=== PATIENT | female | born 1985 | race Hispanic/Latino ===

== ENCOUNTER 2017-12-15 18:17 | Inpatient (IN) | payer BC ==
[2017-12-15] MEDS ORDERED: Methylergonovine 0.2 MG/1 ML Amp IM PRN (18:52)
[2017-12-15] MEDS ORDERED: Sodium Chloride 0.9% 10 ML Syringe FLUSH PRN (18:52)
[2017-12-15] MEDS ORDERED: Lidocaine 1% 50 ML MDV INJECT PRN (18:52)
[2017-12-15] MEDS ORDERED: Misoprostol 200 MCG Tab PO PRN (18:52)
[2017-12-15] MEDS ORDERED: Sodium Chloride 0.9% 2.5 ML Syringe FLUSH PRN (18:52)
[2017-12-15] MEDS ORDERED: Water For Irrigation,Sterile 1,000 ML Container IRR PRN (18:52)
[2017-12-15] MEDS ORDERED: Tranexamic Acid 1,000 MG in Sodium Chloride 0.9% 100 ML IV PRN (18:52)
[2017-12-15] MEDS ORDERED: Nalbuphine 10 MG/1 ML Vial IVPUSH PRN (18:52)
[2017-12-15] MEDS ORDERED: Carboprost Tromethamine 250 MCG/1 ML Amp IM PRN (18:52)
[2017-12-15] MEDS ORDERED: Oxytocin/0.9 % Sodium Chloride 30 UNIT/500 ML BAG IV SCH ×2 (19:00→20:30)
[2017-12-15 19:45] LABS: CHLORIDE,CL 103 mmol/L (98-107); SODIUM,NA 136 mmol/L (136-145)
[2017-12-15] MEDS ORDERED: Misoprostol 25 MCG (1/4 of 100 MCG) Tab VAG PRN (20:23)
[2017-12-15] MEDS ORDERED: Terbutaline 1 MG/ML SDV SUBCUT PRN (20:23)
[2017-12-15] MEDS: Misoprostol 25 MCG (1/4 of 100 MCG) Tab VAG SCH (20:47)
[2017-12-16] MEDS: Misoprostol 25 MCG (1/4 of 100 MCG) Tab VAG SCH ×2 (01:11→07:00)
[2017-12-16] MEDS: Butorphanol 1 MG/ML SDV IVPUSH PRN ×2 (07:07→09:28)
[2017-12-16] MEDS: Lactated Ringers 1,000 ML IV SCH ×2 (09:37→11:02)
[2017-12-16] MEDS ORDERED: Ropivacaine 0.2% 2 MG/ML 20 ML SDV ONE (10:55)
[2017-12-16] MEDS ORDERED: Ropivacaine HCl/PF 100 ML ONE (10:55)
[2017-12-16] MEDS ORDERED: fentaNYL 100 MCG/2 ML SDV ONE (10:55)
--- NOTE | 2017-12-16 11:24 | PCM.PREANE ---
Preanesthetic Assessment - Anesthesia/Transfusion/Family Hx Anesthesia History: Prior Anesthesia Without Reaction Family History of Anesthesia Reaction: No Transfusion History: No Prior Transfusion(s) Intubation History: Unknown - Review of Systems General: No Symptoms Pulmonary: No Symptoms Cardiovascular: No Symptoms Gastrointestinal: No Symptoms Neurological: No Symptoms Other: Reports: None - Physical Assessment NPO Status Date: 12/16/17 NPO Status Time: 08:00 (SIPS/CHIPS) Blood Pressure: 142/93 Height: 5 ft 2 in Weight: 181 lb 6 oz ASA Class: 2 Mental Status: Alert & Oriented x3 Airway Class: Mallampati = 2 Dentition: Reports: Normal Dentition Thyro-Mental Finger Breadths: 3 Mouth Opening Finger Breadths: 3 ROM/Head Extension: Full Lungs: Clear to Auscultation, Normal Respiratory Effort Cardiovascular: Regular Rate, Regular Rhythm - Lab Values: Laboratory Last Values WBC 5.82 K/uL (4.0-11.0) 12/15/17 19:10 RBC 4.17 M/uL (4.30-5.90) L 12/15/17 19:10 Hgb 12.7 g/dL (12.0-16.0) 12/15/17 19:10 Hct 37.8 % (36.0-46.0) 12/15/17 19:10 MCV 90.6 fL (80.0-98.0) 12/15/17 19:10 MCH 30.5 pg (27.0-32.0) 12/15/17 19:10 MCHC 33.6 g/dL (31.0-37.0) 12/15/17 19:10 RDW Std Deviation 45.6 fl (28.0-62.0) 12/15/17 19:10 RDW Coeff of Tosin 14 % (11.0-15.0) 12/15/17 19:10 Plt Count 137 K/uL (150-400) L 12/15/17 19:10 MPV 11.20 fL (7.40-12.00) 12/15/17 19:10 Nucleated RBC % 0.0 /100WBC 12/15/17 19:10 Nucleated RBCs # 0 K/uL 12/15/17 19:10 Sodium 136 mmol/L (136-145) 12/15/17 19:10 Potassium 3.8 mmol/L (3.5-5.1) 12/15/17 19:10 Chloride 103 mmol/L (98-107) 12/15/17 19:10 Carbon Dioxide 21.8 mmol/L (21.0-32.0) 12/15/17 19:10 BUN 13 mg/dL (7.0-18.0) 12/15/17 19:10 Creatinine 0.6 mg/dL (0.6-1.0) 12/15/17 19:10 Est Cr Clr Drug Dosing 104.49 mL/min 12/15/17 19:10 Estimated GFR (MDRD) > 60.0 ml/min 12/15/17 19:10 Glucose 104 mg/dL (74-106) 12/15/17 19:10 Calcium 8.7 mg/dL (8.5-10.1) 12/15/17 19:10 Total Bilirubin 0.2 mg/dL (0.2-1.0) 12/15/17 19:10 AST 25 IU/L (15-37) 12/15/17 19:10 ALT 16 IU/L (14-63) 12/15/17 19:10 Alkaline Phosphatase 98 U/L (46-116) 12/15/17 19:10 Total Protein 6.5 g/dL (6.4-8.2) 12/15/17 19:10 Albumin 2.7 g/dL (3.4-5.0) L 12/15/17 19:10 Globulin 3.8 g/dL (2.0-3.5) H 12/15/17 19:10 Albumin/Globulin Ratio 0.7 (1.3-2.8) L 12/15/17 19:10 Urine Color YELLOW 12/15/17 22:45 Urine Appearance CLEAR 12/15/17 22:45 Urine pH 6.5 (5.0-8.0) 12/15/17 22:45 Ur Specific Wallace 1.015 (1.001-1.035) 12/15/17 22:45 Urine Protein NEGATIVE mg/dL (NEGATIVE) 12/15/17 22:45 Urine Glucose (UA) NEGATIVE mg/dL (NEGATIVE) 12/15/17 22:45 Urine Ketones NEGATIVE mg/dL (NEGATIVE) 12/15/17 22:45 Urine Occult Blood NEGATIVE (NEGATIVE) 12/15/17 22:45 Urine Nitrite NEGATIVE (NEGATIVE) 12/15/17 22:45 Urine Bilirubin NEGATIVE (NEGATIVE) 12/15/17 22:45 Urine Urobilinogen 0.2 EU/dL (<2.0) 12/15/17 22:45 Ur Leukocyte Esterase NEGATIVE (NEGATIVE) 12/15/17 22:45 Urine RBC 0-1 (0-2/HPF) 12/15/17 22:45 Urine WBC 0-2 (0-5/HPF) 12/15/17 22:45 Ur Epithelial Cells OCCASIONAL (NONE-FEW) 12/15/17 22:45 Urine Bacteria RARE (NEGATIVE) 12/15/17 22:45 Blood Type B POSITIVE 12/15/17 19:10 Antibody Screen NEGATIVE 12/15/17 19:10 - Allergies Allergies/Adverse Reactions: Allergies Allergy/AdvReac Type Severity Reaction Status Date / Time No Known Allergies Allergy Verified 07/13/15 06:09 - Blood Blood Available: No Product(s) Available: None - Anesthesia Plan Free Text/Narrative:: Labor Epidural Pre-Op Medication Ordered: None - Acknowledgements Anesthesia Type Planned: Epidural Pt an Appropriate Candidate for the Planned Anesthesia: Yes Alternatives and Risks of Anesthesia Discussed w Pt/Guardian: Yes Pt/Guardian Understands and Agrees with Anesthesia Plan: Yes PreAnesthesia Questionnaire - Past Health History Medical/Surgical History: Denies Medical/Surgical History HEENT History: Reports: None Cardiovascular History: Reports: None Respiratory History: Reports: None Gastrointestinal History: Reports: None Genitourinary History: Reports: None 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: Musculoskeletal History: Reports: None Neurological History: Reports: None Psychiatric History: Reports: Anxiety Endocrine/Metabolic History: Reports: None Hematologic History: Reports: None, Idiopathic Thrombocytopenia Oncologic (Cancer) History: Reports: None Dermatologic History: Reports: None - Infectious Disease History Infectious Disease History: Reports: Chicken Pox - Past Surgical History Head Surgeries/Procedures: Reports: None GI Surgical History: Reports: None Female Surgical History: Reports: None Neurological Surgical History: Reports: None Musculoskeletal Surgical History: Reports: None Oncologic Surgical History: Reports: None Dermatological Surgical History: Reports: None - SUBSTANCE USE Smoking Status *Q: Never Smoker Second Hand Smoke Exposure: No Recreational Drug Use History: No - HOME MEDS Home Medications: Home Meds Citalopram [Citalopram HBr] 20 mg PO DAILY 12/15/17 [History] Vit #108/Iron/FA [ One Tablet] 1 each PO DAILY 12/15/17 [ History] - CURRENT (IN HOUSE) MEDS Current Meds: Current Medications Butorphanol Tartrate (Stadol) 1 mg IVPUSH Q1H PRN PRN Reason: Pain Last Admin: 12/16/17 09:28 Dose: 1 mg Carboprost Tromethamine (Hemabate Ds) 250 mcg IM ASDIRECTED PRN PRN Reason: Post Hemorrhage Lactated Ringer's (Ringers, Lactated) 1,000 mls @ 150 mls/hr IV ASDIRECTED GIANLUCA Last Admin: 12/16/17 11:02 Dose: 200 mls/hr Oxytocin/Sodium Chloride (Oxytocin 30 Unit/500 Ml-Ns) 30 unit in 500 mls @ 250 mls/hr IV TITRATE GIANLUCA Tranexamic Acid 1,000 mg/ (Sodium Chloride) 110 mls @ 660 mls/hr IV ONETIME PRN PRN Reason: Bleeding Oxytocin/Sodium Chloride (Oxytocin 30 Unit/500 Ml-Ns) 30 unit in 500 mls @ 2 mls/hr IV TITRATE GIANLUCA; Protocol Lidocaine HCl (Xylocaine 1%) 50 ml INJECT .ONCE PRN PRN Reason: Laceration repair Methylergonovine Maleate (Methergine) 0.2 mg IM ASDIRECTED PRN PRN Reason: Post Hemorrhage Misoprostol (Cytotec) 200 mcg PO .ONCE PRN PRN Reason: Post Hemorrhage Misoprostol (Cytotec) 25 mcg VAG .ONCE GIANLUCA Last Admin: 12/16/17 07:00 Dose: 25 mcg Misoprostol (Cytotec) 25 mcg VAG Q4H PRN PRN Reason: Cervical Ripening Nalbuphine HCl (Nubain) 10 mg IVPUSH Q1H PRN PRN Reason: Pain (severe 7-10) Sodium Chloride (Saline Flush) 10 ml FLUSH ASDIRECTED PRN PRN Reason: Keep Vein Open Sodium Chloride (Saline Flush) 2.5 ml FLUSH ASDIRECTED PRN PRN Reason: Keep Vein Open Last Admin: 12/16/17 09:29 Dose: 2.5 ml Sterile Water (Sterile Water For Irrigation) 1,000 ml IRR ASDIRECTED PRN PRN Reason: delivery Terbutaline Sulfate (Brethine) 0.25 mg SUBCUT ASDIRECTED PRN PRN Reason: Tacysystole Discontinued Medications Fentanyl (Sublimaze) Confirm Administered Dose 100 mcg .ROUTE .STK-MED ONE Stop: 12/16/17 10:56 Ropivacaine (Naropin 0.2%) Confirm Administered Dose 100 mls @ as directed .ROUTE .STK-MED ONE Stop: 12/16/17 10:56 Ropivacaine (Naropin 0.2%) Confirm Administered Dose 20 ml .ROUTE .STK-MED ONE Stop: 12/16/17 10:56
[2017-12-16] MEDS ORDERED: Acetaminophen 500 MG Tab PO PRN (16:20)
[2017-12-16] MEDS ORDERED: Lanolin 100% Cream 7 GM Tube TOP PRN (16:20)
[2017-12-16] MEDS ORDERED: Bisacodyl 10 MG Supp RECTAL PRN (16:20)
[2017-12-16] MEDS ORDERED: Aluminum Hydroxide/Magnesium Hydroxide/Simethicone Susp 30 ML Cup PO PRN (16:20)
[2017-12-16] MEDS ORDERED: Ibuprofen 400 MG Tab PO PRN (16:20)
[2017-12-16] MEDS ORDERED: Benzocaine/Menthol 20%-0.5% Spray 78 GM Cannister TOP PRN (16:20)
[2017-12-16] MEDS ORDERED: Hydrocortisone 2.5% Crm 30 GM Tube TOP PRN (16:20)
[2017-12-16] MEDS ORDERED: Lidocaine 5% Oint 35.44 GM Tube TOP PRN (16:22)
--- NOTE | 2017-12-16 16:30 | PCM.OPNOTE ---
- General Post-Op/Procedure Note Date of Surgery/Procedure: 12/16/17 Operative Procedure(s): /IP Findings: Viable male APGARs 9, 9 weight 3380 gm. Spontaneous delivery intact placenta with 3 V cord Pre Op Diagnosis: 38 week IUP. Gestational proteinuria. Gestational thrombocytopenia Post-Op Diagnosis: Same Anesthesia Technique: Epidural Primary Surgeon: Marquita Elliott EBL in mLs: 300 Complications: none known Condition: Good Free Text/Narrative:: Dictation [id number]
[2017-12-16] MEDS: Witch Hazel Medicated Pads 40/Jar TOP PRN (20:02)
[2017-12-16] MEDS: Docusate Sodium 100 MG Cap PO PRN (20:04)
[2017-12-16] MEDS: oxyCODONE 5 MG Tab PO PRN (20:42)
[2017-12-16] MEDS: Acetaminophen 500 MG Tab PO PRN (20:43)
--- NOTE | 2017-12-16 23:18 | OR ---
SURGEON: Marquita Elliott M.D. DATE OF PROCEDURE: 12/16/2017 PREOPERATIVE DIAGNOSES: 1. 38-week intrauterine . 2. Gestational proteinuria. 3. Gestational thrombocytopenia. POSTOPERATIVE DIAGNOSES: 1. 38-week intrauterine . 2. Gestational proteinuria. 3. Gestational thrombocytopenia. PROCEDURE: Spontaneous vaginal delivery. Intact perineum. ESTIMATED BLOOD LOSS: 300 mL. ANESTHESIA: Epidural. FINDINGS: Viable male, score 9 at 1 minute and 9 at 5 minute. Weight of 3380 g. Spontaneous delivery, intact placenta, three-vessel cord, clear amniotic fluid. DISPOSITION: Infant to nursery, mom in LDRP, stable. PROCEDURE DETAILS: Lucie is a 32-year-old G2, P1, at 37 and 6/7 week gestational age when she presented to Labor and Delivery for induction of labor due to abnormal 24-hour urine and mild thrombocytopenia. LFTs are normal. Blood pressures range in the 120 to 130/70 to 80 range. She denies any headaches, visual changes, midepigastric pain, given term gestation and with these acute findings, felt best to proceed with delivery. Risks of procedure were discussed and proper consent obtained. The patient initially was found to be 1 cm, 40% effaced, -3 station; therefore, was initiated on Cytotec ripening, received three doses and respond nicely. This found to be 3 to 4 cm, 70% effaced, -2 station. Therefore, she was initiated on Pitocin, became increasingly uncomfortable, underwent regional anesthesia from epidural. Shortly after noon, was found to be 4 to 5 cm, had spontaneous rupture of membranes. Clear fluid was noted to be present. An IUPC was placed to help monitor contractions more closely. Shortly after spontaneous rupture of membranes, the patient began having significantly increased intensity in contractions and quickly progressed to 7 cm. There were some initial recurrent deceleration with this rapid change in her cervix; however, Pitocin was discontinued. The patient was repositioned, oxygen was applied and with the contractions spacing out slightly, the heart tones recovered to 120s with variability. The patient continued to progress to complete 100%, effaced at -2 station. Pushed readily to a +3 station. I was called for delivery. Upon my arrival, the patient was placed in modified dorsal lithotomy position, was prepped and draped in the usual aseptic manner. Continue to pushing efforts, pushed readily to a +4 station. Shortly thereafter, delivered 's head followed by anterior shoulder push, remaining body without difficulty. The infant's oropharynx and nares bulb suctioned. Cord was clamped x2 and cut. was handed off to his mother, attending nursing staff side. Cord arterial, cord venous, cord blood sampling obtained. Light pressure was applied while the placenta was delivered spontaneously intact. Vigorous fundal uterine massage was applied while 30 units of Pitocin was delivered in 500 mL of fluid. Upon inspection of cervix, vaginal side, and perineum, these found to be intact. Uterus remained firm. Hemostasis evident. Sponge count was correct. The patient remained in LDRP. Infant to nursery. MARI / MELO /[id number]
[2017-12-17] MEDS: Ibuprofen 800 MG Tab PO PRN ×2 (01:55→12:33)
[2017-12-17] MEDS: oxyCODONE 5 MG Tab PO PRN ×4 (05:28→23:03)
[2017-12-17] MEDS: Acetaminophen 500 MG Tab PO PRN ×3 (05:29→23:05)
--- NOTE | 2017-12-17 09:40 | PCM.PNPP ---
- General Info Date of Service: 12/17/17 Functional Status: Reports: Pain Controlled, Tolerating Diet, Ambulating, Urinating - Review of Systems General: Denies: Fever, Weakness Pulmonary: Denies: Shortness of Breath Cardiovascular: Denies: Chest Pain, Palpitations, Lightheadedness Gastrointestinal: Reports: Flatus. Denies: Nausea, Vomiting Genitourinary: Denies: Flank Pain Skin: Reports: No Symptoms Neurological: Denies: Dizziness, Headache Psychiatric: Reports: No Symptoms - General Info Date of Service: 12/17/17 - Patient Data Vital Signs - Most Recent: Last Vital Signs Temp 36.4 C 12/17/17 08:14 Pulse 77 12/17/17 06:43 Resp 18 12/17/17 08:14 BP 137/78 12/17/17 08:14 Pulse Ox 98 12/17/17 08:14 Weight - Most Recent: 82.27 kg Lab Results - Last 24 Hours: Laboratory Results - last 24 hr 12/16/17 12/17/17 Range/Units 15:55 05:33 WBC 9.10 (4.0-11.0) K/uL RBC 3.89 L (4.30-5.90) M/uL Hgb 11.8 L (12.0-16.0) g/dL Hct 35.6 L (36.0-46.0) % MCV 91.5 (80.0-98.0) fL MCH 30.3 (27.0-32.0) pg MCHC 33.1 (31.0-37.0) g/dL RDW Std Deviation 45.8 (28.0-62.0) fl RDW Coeff of Tosin 14 (11.0-15.0) % Plt Count 127 L (150-400) K/uL MPV 10.90 (7.40-12.00) fL Nucleated RBC % 0.0 /100WBC Nucleated RBCs # 0 K/uL Cord ABG pH 7.182 (7.18-7.38) Cord ABG Base Excess -5 (-10--2) Cord VBG pH 7.262 (7.25-7.45) Cord VBG Base Excess -5 (-10--2) Med Orders - Current: Current Medications Acetaminophen (Tylenol Extra Strength) 500 mg PO Q4H PRN PRN Reason: Pain Last Admin: 12/17/17 05:29 Dose: 500 mg Acetaminophen (Tylenol Extra Strength) 1,000 mg PO Q4H PRN PRN Reason: Pain Al Hydroxide/Mg Hydroxide (Mag-Al Plus) 30 ml PO Q8H PRN PRN Reason: Heartburn Benzocaine/Menthol (Dermoplast Pain Relief 20%-0.5% [place]) 0 gm TOP ASDIRECTED PRN PRN Reason: Perineal Comfort Measure Last Admin: 12/16/17 20:02 Dose: 78 gm Bisacodyl (Dulcolax) 10 mg RECTAL .ONCE PRN PRN Reason: Constipation Carboprost Tromethamine (Hemabate Ds) 250 mcg IM ASDIRECTED PRN PRN Reason: Post Hemorrhage Docusate Sodium (Colace) 100 mg PO BID PRN PRN Reason: Constipation Last Admin: 12/16/17 20:04 Dose: 100 mg Emollient Ointment (Lansinoh Hpa) 0 gm TOP ASDIRECTED PRN PRN Reason: Sore Nipples Last Admin: 12/16/17 20:02 Dose: 7 gm Hydrocortisone (Proctozone-Hc 2.5% Crm) 0 gm TOP 5XDAY PRN PRN Reason: Itching Last Admin: 12/16/17 20:03 Dose: 30 gm Lactated Ringer's (Ringers, Lactated) 1,000 mls @ 150 mls/hr IV ASDIRECTED GIANLUCA Last Admin: 12/16/17 11:02 Dose: 200 mls/hr Oxytocin/Sodium Chloride (Oxytocin 30 Unit/500 Ml-Ns) 30 unit in 500 mls @ 250 mls/hr IV TITRATE GIANLUCA Tranexamic Acid 1,000 mg/ (Sodium Chloride) 110 mls @ 660 mls/hr IV ONETIME PRN PRN Reason: Bleeding Oxytocin/Sodium Chloride (Oxytocin 30 Unit/500 Ml-Ns) 30 unit in 500 mls @ 2 mls/hr IV TITRATE GIANLUCA; Protocol Last Titration: 12/16/17 14:53 Dose: 4 munits/min, 4 mls/hr Ibuprofen (Motrin) 400 mg PO Q4H PRN PRN Reason: Pain Ibuprofen (Motrin) 800 mg PO Q6H PRN PRN Reason: Pain Last Admin: 12/17/17 01:55 Dose: 800 mg Lidocaine HCl (Lidocaine 5%) 0 gm TOP QID PRN PRN Reason: hemorrhoid pain Methylergonovine Maleate (Methergine) 0.2 mg IM ASDIRECTED PRN PRN Reason: Post Hemorrhage Misoprostol (Cytotec) 200 mcg PO .ONCE PRN PRN Reason: Post Hemorrhage Oxycodone HCl (Oxycodone) 5 mg PO Q2H PRN PRN Reason: Pain Last Admin: 12/17/17 05:28 Dose: 5 mg Sodium Chloride (Saline Flush) 10 ml FLUSH ASDIRECTED PRN PRN Reason: Keep Vein Open Sodium Chloride (Saline Flush) 2.5 ml FLUSH ASDIRECTED PRN PRN Reason: Keep Vein Open Last Admin: 12/16/17 09:29 Dose: 2.5 ml Witch Fior (Tucks) 1 pad TOP ASDIRECTED PRN PRN Reason: comfort care Last Admin: 12/16/17 20:02 Dose: 1 pad Discontinued Medications Butorphanol Tartrate (Stadol) 1 mg IVPUSH Q1H PRN PRN Reason: Pain Last Admin: 12/16/17 09:28 Dose: 1 mg Fentanyl (Sublimaze) Confirm Administered Dose 100 mcg .ROUTE .STTurbulenz-MED ONE Stop: 12/16/17 10:56 Last Admin: 12/17/17 08:18 Dose: Not Given Ropivacaine (Naropin 0.2%) Confirm Administered Dose 100 mls @ as directed .ROUTE .Genophen-MED ONE Stop: 12/16/17 10:56 Last Admin: 12/17/17 08:18 Dose: Not Given Lidocaine HCl (Xylocaine 1%) 50 ml INJECT .ONCE PRN PRN Reason: Laceration repair Misoprostol (Cytotec) 25 mcg VAG .ONCE GIANLUCA Last Admin: 12/16/17 07:00 Dose: 25 mcg Misoprostol (Cytotec) 25 mcg VAG Q4H PRN PRN Reason: Cervical Ripening Nalbuphine HCl (Nubain) 10 mg IVPUSH Q1H PRN PRN Reason: Pain (severe 7-10) Ropivacaine (Naropin 0.2%) Confirm Administered Dose 20 ml .ROUTE .STK-MED ONE Stop: 12/16/17 10:56 Last Admin: 12/17/17 08:18 Dose: Not Given Sterile Water (Sterile Water For Irrigation) 1,000 ml IRR ASDIRECTED PRN PRN Reason: delivery Terbutaline Sulfate (Brethine) 0.25 mg SUBCUT ASDIRECTED PRN PRN Reason: Tacysystole - Interaction Support Person: , Other (see below) - Recovery Exam Fundal Tone: Firm Fundal Level: At Umbilicus Fundal Placement: Midline Lochia Amount: Scant Lochia Color: Rubra/Red Perineum Description: Hemorrhoids Episiotomy/Laceration: None Bladder Status: Voiding Urinary Elimination: Voided - Exam General: Alert, Oriented Lungs: Normal Respiratory Effort Cardiovascular: Regular Rate, Regular Rhythm GI/Abdominal Exam: Normal Bowel Sounds, Soft, Non-Tender Extremities: Pedal Edema (jose martin). No: Tori's Sign Skin: Warm, Dry, Intact Neurological: No New Focal Deficit Psy/Mental Status: Alert, Normal Affect, Normal Mood - Problem List & Annotations (1) Vaginal delivery SNOMED Code(s): 742019734 Code(s): O80 - ENCOUNTER FOR FULL-TERM UNCOMPLICATED DELIVERY Status: Acute Current Visit: Yes (2) Gestational proteinuria SNOMED Code(s): 35141898 Code(s): O12.10 - GESTATIONAL PROTEINURIA, UNSPECIFIED TRIMESTER Status: Acute Current Visit: Yes - Problem List Review Problem List Initiated/Reviewed/Updated: Yes - My Orders Last 24 Hours: My Active Orders 12/16/17 16:20 Patient Status [ADT] Routine May Shower [RC] ASDIRECTED Up ad Nathaly [RC] ASDIRECTED Vital Signs [RC] PER UNIT ROUTINE Acetaminophen [Tylenol Extra Strength] 1,000 mg PO Q4H PRN Acetaminophen [Tylenol Extra Strength] 500 mg PO Q4H PRN Alum Hydrox/Mag Hydrox/Simeth [Mag-Al Plus] 30 ml PO Q8H PRN Benzocaine/Menthol [Dermoplast Pain Relief 20%-0.5% [place]] 0 gm TOP ASDIRECTED PRN Bisacodyl [Dulcolax] 10 mg RECTAL .ONCE PRN Docusate Sodium [Colace] 100 mg PO BID PRN Hydrocortisone [Proctozone-HC 2.5% Crm] 0 gm TOP 5XDAY PRN Ibuprofen [Motrin] 400 mg PO Q4H PRN Ibuprofen [Motrin] 800 mg PO Q6H PRN Lanolin [Lansinoh HPA] See Dose Instructions TOP ASDIRECTED PRN Witch Fior [Tucks] 1 pad TOP ASDIRECTED PRN oxyCODONE 5 mg PO Q2H PRN Assess Lochia [WOMSER] Per Unit Routine Assess Uterine Involution [WOMSER] Per Unit Routine Ice Therapy [OM.PC] Per Unit Routine Perineal Care [OM.PC] Per Unit Routine Peripheral IV Discontinue [OM.PC] Routine Sitz Bath [OM.PC] Per Unit Routine 12/16/17 16:22 Lidocaine 5% See Dose Instructions TOP QID PRN 12/16/17 Dinner Regular Diet [DIET] 12/17/17 09:37 Ready for Discharge [RC] PER UNIT ROUTINE - Assessment Assessment:: PPD 1 status post Gestational proteinuria Gestational mild thrombocytopenia - Plan Plan:: Patient is doing well overall. Platelets are stable at 127,000. VS are stable. She would like to go home later today if able. Discharge instructions reviewed. Follow up at [facility] 2 and 6 weeks. Continue PNV daily. Follow up CBC at PP visit. Infection and bleeding warnings reviewed.
[2017-12-17] MEDS: Docusate Sodium 100 MG Cap PO PRN ×2 (12:33→23:03)
--- NOTE | 2017-12-17 12:48 | PCM48HPAN ---
Post Anesthesia Note - EVALUATION WITHIN 48HRS OF ANESTHETIC Vital Signs in Normal Range: Yes Patient Participated in Evaluation: Yes Respiratory Function Stable: Yes Airway Patent: Yes Cardiovascular Function Stable: Yes Hydration Status Stable: Yes Pain Control Satisfactory: Yes Nausea and Vomiting Control Satisfactory: Yes Mental Status Recovered: Yes Pulse Rate: 77 SaO2: 98 Resp Rate: 18 Temperature: 97.6 F Blood Pressure: 137/73
[2017-12-17] MEDS: Witch Hazel Medicated Pads 40/Jar TOP PRN (23:10)
[2017-12-18] MEDS: Ibuprofen 800 MG Tab PO PRN (07:43)
[2017-12-18] MEDS: Docusate Sodium 100 MG Cap PO PRN (07:49)
[2017-12-18 07:54] VITALS: BP 151/84
--- NOTE | 2017-12-18 08:49 | PCM.PNPP ---
- General Info Date of Service: 12/18/17 Functional Status: Reports: Pain Controlled, Tolerating Diet, Ambulating, Urinating - Review of Systems General: Denies: Fever, Weakness Pulmonary: Denies: Shortness of Breath Cardiovascular: Denies: Chest Pain, Palpitations, Lightheadedness Gastrointestinal: Reports: Flatus. Denies: Abdominal Pain, Nausea, Vomiting Genitourinary: Denies: Flank Pain Psychiatric: Reports: No Symptoms - General Info Date of Service: 12/18/17 - Patient Data Vital Signs - Most Recent: Last Vital Signs Temp 36.9 C 12/18/17 07:51 Pulse 65 12/18/17 07:51 Resp 16 12/18/17 07:51 BP 151/84 H 12/18/17 07:51 Pulse Ox 98 12/18/17 07:51 Weight - Most Recent: 82.27 kg Med Orders - Current: Current Medications Acetaminophen (Tylenol Extra Strength) 500 mg PO Q4H PRN PRN Reason: Pain Last Admin: 12/17/17 23:05 Dose: 500 mg Acetaminophen (Tylenol Extra Strength) 1,000 mg PO Q4H PRN PRN Reason: Pain Last Admin: 12/18/17 07:46 Dose: 1,000 mg Al Hydroxide/Mg Hydroxide (Mag-Al Plus) 30 ml PO Q8H PRN PRN Reason: Heartburn Benzocaine/Menthol (Dermoplast Pain Relief 20%-0.5% [place]) 0 gm TOP ASDIRECTED PRN PRN Reason: Perineal Comfort Measure Last Admin: 12/16/17 20:02 Dose: 78 gm Bisacodyl (Dulcolax) 10 mg RECTAL .ONCE PRN PRN Reason: Constipation Carboprost Tromethamine (Hemabate Ds) 250 mcg IM ASDIRECTED PRN PRN Reason: Post Hemorrhage Docusate Sodium (Colace) 100 mg PO BID PRN PRN Reason: Constipation Last Admin: 12/18/17 07:49 Dose: 100 mg Emollient Ointment (Lansinoh Hpa) 0 gm TOP ASDIRECTED PRN PRN Reason: Sore Nipples Last Admin: 12/16/17 20:02 Dose: 7 gm Hydrocortisone (Proctozone-Hc 2.5% Crm) 0 gm TOP 5XDAY PRN PRN Reason: Itching Last Admin: 12/16/17 20:03 Dose: 30 gm Lactated Ringer's (Ringers, Lactated) 1,000 mls @ 150 mls/hr IV ASDIRECTED GIANLUCA Last Admin: 12/16/17 11:02 Dose: 200 mls/hr Oxytocin/Sodium Chloride (Oxytocin 30 Unit/500 Ml-Ns) 30 unit in 500 mls @ 250 mls/hr IV TITRATE GIANLUCA Tranexamic Acid 1,000 mg/ (Sodium Chloride) 110 mls @ 660 mls/hr IV ONETIME PRN PRN Reason: Bleeding Oxytocin/Sodium Chloride (Oxytocin 30 Unit/500 Ml-Ns) 30 unit in 500 mls @ 2 mls/hr IV TITRATE GIANLUCA; Protocol Last Titration: 12/16/17 14:53 Dose: 4 munits/min, 4 mls/hr Ibuprofen (Motrin) 400 mg PO Q4H PRN PRN Reason: Pain Ibuprofen (Motrin) 800 mg PO Q6H PRN PRN Reason: Pain Last Admin: 12/18/17 07:43 Dose: 800 mg Lidocaine HCl (Lidocaine 5%) 0 gm TOP QID PRN PRN Reason: hemorrhoid pain Methylergonovine Maleate (Methergine) 0.2 mg IM ASDIRECTED PRN PRN Reason: Post Hemorrhage Misoprostol (Cytotec) 200 mcg PO .ONCE PRN PRN Reason: Post Hemorrhage Oxycodone HCl (Oxycodone) 5 mg PO Q2H PRN PRN Reason: Pain Last Admin: 12/17/17 23:03 Dose: 5 mg Sodium Chloride (Saline Flush) 10 ml FLUSH ASDIRECTED PRN PRN Reason: Keep Vein Open Sodium Chloride (Saline Flush) 2.5 ml FLUSH ASDIRECTED PRN PRN Reason: Keep Vein Open Last Admin: 12/16/17 09:29 Dose: 2.5 ml Witch Fior (Tucks) 1 pad TOP ASDIRECTED PRN PRN Reason: comfort care Last Admin: 12/17/17 23:10 Dose: 1 pad Discontinued Medications Butorphanol Tartrate (Stadol) 1 mg IVPUSH Q1H PRN PRN Reason: Pain Last Admin: 12/16/17 09:28 Dose: 1 mg Fentanyl (Sublimaze) Confirm Administered Dose 100 mcg .ROUTE .STK-MED ONE Stop: 12/16/17 10:56 Last Admin: 12/17/17 08:18 Dose: Not Given Ropivacaine (Naropin 0.2%) Confirm Administered Dose 100 mls @ as directed .ROUTE .STK-MED ONE Stop: 12/16/17 10:56 Last Admin: 12/17/17 08:18 Dose: Not Given Lidocaine HCl (Xylocaine 1%) 50 ml INJECT .ONCE PRN PRN Reason: Laceration repair Misoprostol (Cytotec) 25 mcg VAG .ONCE GIANLUCA Last Admin: 12/16/17 07:00 Dose: 25 mcg Misoprostol (Cytotec) 25 mcg VAG Q4H PRN PRN Reason: Cervical Ripening Nalbuphine HCl (Nubain) 10 mg IVPUSH Q1H PRN PRN Reason: Pain (severe 7-10) Ropivacaine (Naropin 0.2%) Confirm Administered Dose 20 ml .ROUTE .[employer] AG-MED ONE Stop: 12/16/17 10:56 Last Admin: 12/17/17 08:18 Dose: Not Given Sterile Water (Sterile Water For Irrigation) 1,000 ml IRR ASDIRECTED PRN PRN Reason: delivery Terbutaline Sulfate (Brethine) 0.25 mg SUBCUT ASDIRECTED PRN PRN Reason: Tacysystole - Interaction Support Person: , Other (see below) - Recovery Exam Fundal Tone: Firm Fundal Level: At Umbilicus Fundal Placement: Midline Lochia Amount: Scant Lochia Color: Rubra/Red Perineum Description: Intact, Minimal Bruising/Swelling Episiotomy/Laceration: None Bladder Status: Voiding Urinary Elimination: Voided - Exam General: Alert, Oriented Lungs: Normal Respiratory Effort Cardiovascular: Regular Rate, Regular Rhythm GI/Abdominal Exam: Normal Bowel Sounds, Soft Extremities: Pedal Edema (trace). No: Tori's Sign Skin: Warm, Dry, Intact Psy/Mental Status: Alert, Normal Affect - Problem List & Annotations (1) Vaginal delivery SNOMED Code(s): 246311709 Code(s): O80 - ENCOUNTER FOR FULL-TERM UNCOMPLICATED DELIVERY Status: Acute Current Visit: Yes (2) Gestational proteinuria SNOMED Code(s): 92890256 Code(s): O12.10 - GESTATIONAL PROTEINURIA, UNSPECIFIED TRIMESTER Status: Acute Current Visit: Yes - Problem List Review Problem List Initiated/Reviewed/Updated: Yes - My Orders Last 24 Hours: My Active Orders 12/17/17 09:37 Ready for Discharge [RC] PER UNIT ROUTINE - Assessment Assessment:: PPD 2 status post Gestational proteinuria Gestational mild thrombocytopenia - Plan Plan:: Patient is doing well overall.Discharge held yesterday as infant's bilirubin was elevated. Resume discharge today. Discharge instructions reviewed. Follow up at [facility] 2 and 6 weeks. Continue PNV daily. Follow up CBC at PP visit. Infection and bleeding warnings reviewed.
== END 2017-12-18 11:40 | disposition home or self-care (01) | DRG 560 ==
LOC: MW.OBCHECK 18:17 → MW.OB 18:52 → OBSVTOIN 12-16 15:58
PROVIDERS: ADMIT Obstetrics & Gynecology; ATTEND Obstetrics & Gynecology
PROC: 10E0XZZ Delivery of Products of Conception, External Approach (ICD-10-PCS; principal; 2017-12-16)
PROC: 10H07YZ Insertion of Other Device into Products of Conception, Via Natural or Artificial Opening (ICD-10-PCS; 2017-12-16)
DX: O12.14 Gestational proteinuria, complicating childbirth (principal); O99.12 Other diseases of the blood and blood-forming organs and certain disorders involving the immune mechanism complicating childbirth; O76 Abnormality in fetal heart rate and rhythm complicating labor and delivery; Z3A.37 37 weeks gestation of pregnancy; Z37.0 Single live birth
CPT/HCPCS: 36415; 59025; 59409; 80053; 81001; 82803; 85027; 86850; 86900; 86901; A9270-GY; J0595; J2590; J7120

== ENCOUNTER 2018-09-22 11:55 | Emergency (ER) | payer BC ==
--- NOTE | 2018-09-22 11:57 | EDM.PDOC ---
ED HPI GENERAL MEDICAL PROBLEM - General Chief Complaint: Back Pain or Injury Stated Complaint: NECK AND BACK PAIN Time Seen by Provider: 09/22/18 11:55 - History of Present Illness INITIAL COMMENTS - FREE TEXT/NARRATIVE: HISTORY AND PHYSICAL: History of present illness: [Patient presents via ambulance She has a complaint of neck pain and right shoulder pain after being at the [employer] park she jumped into the "foam.[email or web address]" ] headfirst, no loss of consciousness reported on initial exam I do not appreciate any vertebral point tenderness on the cervical spine however have not been to the [place] so I'm unaware of what the foam pit actually represents She has full range of motion with right shoulder but does have pain over infraspinatus with movement No vertebral point tenderness of the spine and no actual complaint back pain at this time is alert interactive in no distress no fever nausea vomiting chills sweats no chest pain shortness breath headache dizziness palpitation about a urine symptoms Review of systems: As per history of present illness and below otherwise all systems reviewed and negative. Past medical history: As per history of present illness and as reviewed below otherwise noncontributory. Surgical history: As per history of present illness and as reviewed below otherwise noncontributory. Social history: No reported history of drug or alcohol abuse. Family history: As per history of present illness and as reviewed below otherwise noncontributory. Physical exam: HEENT: Atraumatic, normocephalic, pupils reactive, negative for conjunctival pallor or scleral icterus, mucous membranes moist, throat clear, neck supple, nontender, trachea midline. Lungs: Clear to auscultation, breath sounds equal bilaterally, chest nontender. Heart: S1S2, regular, negative for clicks, rubs, or JVD. Abdomen: Soft, nondistended, nontender. Negative for masses or hepatosplenomegaly. Negative for costovertebral tenderness. Pelvis: Stable nontender. Genitourinary: Deferred. Rectal: Deferred. Extremities: Atraumatic, negative for cords or calf pain. Neurovascular unremarkable. Neuro: Awake, alert, oriented. Cranial nerves II through XII unremarkable. Cerebellum unremarkable. Motor and sensory unremarkable throughout. Exam nonfocal. Diagnostics: [Cervical spine Right shoulder [address] no contrast Thoracic spine no contrast ] Therapeutics: [Toradol 60 IM Morphine 2 mg IV, repeat dose morphine 2 mg IV Solu-Medrol 125 mg IV ] Patient discussed with OPERATIONS EXECUTIVEBrunilda Dickga was accepted transfer to [place] via ground transfer Impression: Burst fracture, unstable T4 T2 right lamina and process fracture T3 bilateral laminar fracture [Muscle spasm] Definitive disposition and diagnosis as appropriate pending reevaluation and review of above. Mid back Pain Score (Numeric/FACES): 10 - Related Data Allergies Allergy/AdvReac Type Severity Reaction Status Date / Time No Known Allergies Allergy Verified 09/22/18 11:56 Home Meds: Home Meds Control 1 tab PO DAILY 09/22/18 [History] Past Medical History - Past Health History Medical/Surgical History: Denies Medical/Surgical History HEENT History: Reports: None Cardiovascular History: Reports: None Respiratory History: Reports: None Gastrointestinal History: Reports: None Genitourinary History: Reports: None KNIFER UP History: Reports: Musculoskeletal History: Reports: None Neurological History: Reports: None Psychiatric History: Reports: Anxiety Endocrine/Metabolic History: Reports: None Hematologic History: Reports: None, Idiopathic Thrombocytopenia Oncologic (Cancer) History: Reports: None Dermatologic History: Reports: None - Infectious Disease History Infectious Disease History: Reports: Chicken Pox - Past Surgical History Head Surgeries/Procedures: Reports: None GI Surgical History: Reports: None Female Surgical History: Reports: None Neurological Surgical History: Reports: None Musculoskeletal Surgical History: Reports: None Oncologic Surgical History: Reports: None Dermatological Surgical History: Reports: None Social & Family History - Family History Musculoskeletal: Reports: None ED ROS GENERAL - Review of Systems Review Of Systems: See Below ED EXAM, GENERAL - Physical Exam Exam: See Below Course - Vital Signs Last Recorded V/S: Last Vital Signs Temp 97 F 09/22/18 14:44 Pulse 81 09/22/18 14:44 Resp 16 09/22/18 14:44 BP 146/98 H 09/22/18 14:44 Pulse Ox 98 09/22/18 14:44 - Orders/Labs/Meds Meds: Medications Discontinued Medications Generic Name Dose Route Start Last Admin Trade Name Freq PRN Reason Stop Dose Admin Ketorolac Tromethamine 60 mg 09/22/18 13:00 09/22/18 13:10 Toradol IM 09/22/18 13:01 60 mg ONETIME ONE Administration Morphine Sulfate 2 mg 09/22/18 14:46 09/22/18 14:55 Morphine IVPUSH 09/22/18 14:47 2 mg ONETIME ONE Administration Departure - Departure Time of Disposition: 16:15 Disposition: DC/Tfer to Acute Hospital 02 Condition: Poor Clinical Impression: Vertebral fracture, closed - Discharge Information Referrals: PCP,None [Primary Care Provider] - Forms: ED Department Discharge
[2018-09-22] MEDS ORDERED: Ketorolac 60 MG/2 ML SDV IM ONE (13:00)
--- NOTE | 2018-09-22 13:04 | CR ---
INDICATION: Injury and pain. TECHNIQUE: Cervical spine 2 view. COMPARISON: None FINDINGS: Bones: The cervical spine is not visualized below C4 on the lateral image. Alignment appears normal. No fracture evident. Joints: Disc spaces and facets are unremarkable. Soft tissues: Unremarkable. IMPRESSION: This is an incomplete exam as the cervical spine is not visualized below C4 on the lateral image and is not well visualized on the AP image. No acute injury evident. Repeat cervical spine series or CT evaluation is recommended for further assessment. Dictated by Flex Baca MD @ Sep 22 2018 1:01PM Signed by Dr. Flex Baca @ Sep 22 2018 1:03PM
--- NOTE | 2018-09-22 13:04 | CR ---
Indication: Injury and pain. Technique: Right shoulder 2 views Comparison: None Findings: Bones: Alignment is normal. No fractures or bone lesions. Joint spaces: The glenohumeral and AC joints and the subacromial space are preserved. No significant degenerative changes. Soft tissues: Unremarkable. Impression: Unremarkable shoulder. No findings to explain pain. Dictated by Flex Baca MD @ Sep 22 2018 1:00PM Signed by Dr. Flex Baca @ Sep 22 2018 1:01PM
--- NOTE | 2018-09-22 14:23 | CT ---
INDICATION: Injury and pain. TECHNIQUE: CT cervical spine C1 through T3 without contrast. COMPARISON: None FINDINGS: Vertebrae: Alignment is normal. No fracture evident in the cervical spine. However, acute nondisplaced fractures are in the right lamina and spinous process at T2, bilateral lamina at T3, right transverse process ease at T3 and T4, and medial left 4th rib at the costal vertebral junction. A comminuted fracture in the T4 vertebral body is incompletely imaged. Discs and facet joints: Disc spaces and facets are within normal limits. Extraspinal findings: Prevertebral soft tissues, visualized airway, and visualized lungs are unremarkable. IMPRESSION: 1. No sign of acute injury in the cervical spine. 2. Multiple nondisplaced fractures are present in the upper thoracic spine including T2, T3 and T4. The comminuted T4 vertebral body fracture is incompletely imaged. A dedicated CT of the thoracic spine is indicated for further evaluation. Dictated by Flex Baca MD @ 09/22/2018 2:20:39 PM Please note that all CT scans at this facility use dose modulation, iterative reconstruction, and/or weight-based dosing when appropriate to reduce radiation dose to as low as reasonably achievable. Dictated by: Flex Baca MD @ 09/22/2018 14:20:57 (Electronically Signed)
[2018-09-22] MEDS ORDERED: Morphine 2 MG/ML Syringe IVPUSH ONE ×2 (14:46→16:16)
--- NOTE | 2018-09-22 16:04 | CT ---
INDICATION: Back pain and shoulder pain. TECHNIQUE: 2 mm axial imaging has been performed through the thoracic spine. Sagittal and coronal reconstructions have been obtained. FINDINGS: Acute comminuted burst fracture deformity is identified of the T4 vertebral body. There is significant diastasis on coronal images. There is extension of the fracture fragment into the posterior vertebral body. There is moderate compression. There is a small retropulsed fragment posteriorly on sagittal images. There are nondisplaced spinous process fractures of T3 and T4. There are nondisplaced fractures through the superior facets of T4 bilaterally. Hairline fracture deformity through the transverse process of T4 on the left is noted. Right transverse process appears intact. The posterior bilateral ribs appear intact. No other fracture is seen. There is mild curvature of the thoracic spine which is convex to the right. IMPRESSION: 1. Comminuted burst fracture deformity involving the T4 vertebral body. There is moderate compression. Extension of fracture posteriorly is noted as detailed above. T3 and T4 transverse process fractures are identified without significant displacement. 2. No other fracture is seen. 3. Finding will be communicated with the ordering provider directly at the emergency room at [facility]. Dictated by Lex Asher MD @ 09/22/2018 4:03:26 PM Please note that all CT scans at this facility use dose modulation, iterative reconstruction, and/or weight-based dosing when appropriate to reduce radiation dose to as low as reasonably achievable. Dictated by: Lex Asher MD @ 09/22/2018 16:03:32 (Electronically Signed)
[2018-09-22] MEDS ORDERED: methylPREDNISolone Sodium Succinate 125 MG/2 ML SDV IVPUSH ONE (16:16)
[2018-09-22 16:43] VITALS: BP 145/99
[2018-09-22] MEDS ORDERED: Ondansetron 4 MG/2 ML SDV IVPUSH ONE (17:44)
[2018-09-22] MEDS ORDERED: HYDROmorphone 2 MG/ML SDV IVPUSH ONE (17:44)
[2018-09-22] MEDS ORDERED: HYDROmorphone 1 MG/ML Syringe ONE (17:49)
[2018-09-22] MEDS ORDERED: HYDROmorphone 2 MG/ML Syringe IVPUSH ONE (17:54)
[2018-09-22] MEDS: HYDROmorphone 2 MG/ML SDV IVPUSH ONE ×2 (17:54)
== END 2018-09-22 18:25 ==
LOC: MW.ED 11:55
DX: S22.041A Stable burst fracture of fourth thoracic vertebra, initial encounter for closed fracture (principal); S22.029A Unspecified fracture of second thoracic vertebra, initial encounter for closed fracture; S22.039A Unspecified fracture of third thoracic vertebra, initial encounter for closed fracture; M62.838 Other muscle spasm; Z79.899 Other long term (current) drug therapy; W17.89XA Other fall from one level to another, initial encounter; Y93.44 Activity, trampolining; Y92.830 Public park as the place of occurrence of the external cause
CPT/HCPCS: 72040; 72125; 72128; 73030; 96372; 96374; 96375; 96376; 99285; J1170; J1885; J2270; J2405; J2930

== ENCOUNTER 2022-05-26 06:30 | Day surgery (SDC) | payer BC ==
[2022-05-24 16:46] LABS: POTASSIUM,K 3.6 mmol/L (3.5-5.1)
[~2022-05-26 06:30] MED LIST: Lactated Ringers 1,000 ML IV SCH; Sodium Chloride 0.9% 10 ML Syringe FLUSH PRN; Sodium Chloride 0.9% 2.5 ML Syringe FLUSH PRN; Sodium Chloride 0.9% 20 ML SDV IV PRN; ceFAZolin 1 GM in Premix Bag 1 BAG IV ONE
[2022-05-26] MEDS ORDERED: Metoclopramide 10 MG/2 ML SDV IVPUSH PRN (07:15)
[2022-05-26] MEDS ORDERED: fentaNYL 50 MCG/ML SDV IVPUSH PRN (07:15)
[2022-05-26] MEDS ORDERED: HYDROmorphone 1 MG/ML Syringe IVPUSH PRN (07:15)
[2022-05-26] MEDS ORDERED: Morphine 2 MG/ML SYRINGE IVPUSH PRN (07:15)
[2022-05-26] MEDS ORDERED: Albuterol 0.083% 2.5 MG/3 ML Neb Soln NEB PRN (07:15)
[2022-05-26] MEDS ORDERED: Ondansetron 4 MG/2 ML SDV IVPUSH PRN (07:15)
[2022-05-26] MEDS ORDERED: Naloxone 0.4 MG/ML SDV IVPUSH PRN (07:15)
[2022-05-26] MEDS ORDERED: Rocuronium Bromide 50 MG/5 ML Syringe ONE (07:32)
[2022-05-26] MEDS ORDERED: Ketorolac 30 MG/ML SDV ONE (07:32)
[2022-05-26] MEDS ORDERED: Sugammadex Sodium 200 MG/2 ML VIAL ONE (07:32)
[2022-05-26] MEDS ORDERED: Lidocaine 2% 5 ML SDV ONE (07:32)
[2022-05-26] MEDS ORDERED: Propofol 200 MG/20 ML SDV ONE (07:32)
[2022-05-26] MEDS ORDERED: fentaNYL 100 MCG/2 ML SDV ONE ×2 (07:33→09:02)
[2022-05-26] MEDS ORDERED: Midazolam 1 MG/ML 2 ML SDV ONE (07:38)
[2022-05-26] MEDS ORDERED: ceFAZolin 1 GM Vial ONE (08:39)
[2022-05-26] MEDS ORDERED: Acetaminophen 1,000 MG in Premix Bag 1 BAG IV ONE (10:04)
[2022-05-26] MEDS ORDERED: oxyCODONE 5 MG Tab PO ONE (10:43)
[2022-05-26] MEDS ORDERED: oxyCODONE 5 MG Tab ONE (10:44)
[2022-05-26 12:39] VITALS: BP 119/80; PULSE 71
== END 2022-05-26 11:55 | disposition home or self-care (01) ==
LOC: MW.SDS 06:30
PROVIDERS: ATTEND Obstetrics & Gynecology
DX: D27.0 Benign neoplasm of right ovary (principal); F41.9 Anxiety disorder, unspecified; F17.210 Nicotine dependence, cigarettes, uncomplicated; I10 Essential (primary) hypertension; D69.3 Immune thrombocytopenic purpura; Z79.899 Other long term (current) drug therapy; Z98.890 Other specified postprocedural states
CPT/HCPCS: 36415; 49322; 58661; 80048; 84703; 85027; 86850; 86900; 86901; A9270; J0131; J0690; J1885; J2250; J2704; J3010; J3490; J7120; 00840; J7030